=== PATIENT | female | born 1965 | race African-American/Black ===

== ENCOUNTER 2017-01-06 20:13 | Inpatient (IN) | payer OTHER, MEDICARE ==
--- NOTE | ~2017-01-06 | CR72 ---
[facility] A Service of [facility] RADIOLOGY TEXT RESULTS PATIENT: VANESSA NAVA LOCATION: [facility] [id number] : [birth year] UNIT #: [id number] AGE: [address]: Marry Warren MD SEX: F ORDER DR: [id number] [facility] [address] [place], [place] [address] [id number] E MR#: [id number] Acc #: [id number] NAME: VANESSA NAVA : 1965 SEX: F STUDY DATE/TIME: 01/06/2017 20:01 UNIT: [facility] ROOM: STUDY DESCRIPTION: CR Chest Single View Portable Attending Physician: Etienne Fried D.O. Ordering Physician: Etienne Fried D.O. Primary Care Physician: Joe Gallego M.D. MEDICAL IMAGING REPORT This report is preliminary unless electronic signature is present EXAM Frontal chest, 01/06/2017 INDICATION 51-year-old female with shortness of air, leg edema. Symptoms since December 20. TECHNIQUE Frontal chest was performed and compared to 11/25/2016. FINDINGS Right-sided PICC line has been removed. Postop changes median sternotomy remain present. Cardiac silhouette is borderline in size and stable. Vascular congestion and interstitial edema have decreased. There is a small left effusion with persistent atelectasis or infiltrate in the left lung base. No pneumothorax. IMPRESSION Improvement in vascular congestion and interstitial edema. Small left effusion and compressive atelectasis or infiltrate in the left lung base. No pneumothorax. Dictated by... Tyler Wise M.D. THIS IS AN ELECTRONICALLY VERIFIED REPORT Tyler Wise M.D. at 01/07/2017 11:41 AM TD/tanner TD: 01/07/2017 00:01 JOB #: [id number] [facility] A Service of [facility] RADIOLOGY TEXT RESULTS PATIENT: VANESSA NAVA LOCATION: [facility] 573-01 : 65 UNIT #: [id number] AGE: [address]: Marry Warren MD SEX: F ORDER DR: MEDICAL IMAGING REPORT Page 1 of 1 COPY
--- NOTE | ~2017-01-06 | US84 ---
[id number] [facility] [address] [place], [place] [address] [id number] I MR#: [id number] Acc #: [id number] NAME: VANESSA NAVA : 1965 SEX: F STUDY DATE/TIME: 01/06/2017 21:57 UNIT: [facility] ROOM: 15390 STUDY DESCRIPTION: US LE Veins Complete Jong Stdy Attending Physician: Tangela Suarez M.D. Ordering Physician: Etienne Fried D.O. Primary Care Physician: Joe Gallego M.D. MEDICAL IMAGING REPORT This report is preliminary unless electronic signature is present EXAM Bilateral lower extremity venous Doppler, 01/06/2017 at 21:57 INDICATIONS Swelling and pain in the legs. Recent spinal surgery and toe amputation. History of diabetes, hypertension and hyperlipidemia. TECHNIQUE Venous ultrasound examination of both lower extremities was performed using grayscale, spectral Doppler and color flow Doppler imaging. FINDINGS The examination is negative. There is no evidence of deep venous thrombus from the groin to the lower calf bilaterally. Visualized greater saphenous veins are also patent. IMPRESSION Negative examination. No evidence of lower extremity deep venous thrombosis. Dictated by... Ryan Wright Jr., M.D. THIS IS AN ELECTRONICALLY VERIFIED REPORT Ryan Wright Jr., M.D. at 01/07/2017 6:04 AM CHASTITY/tanner TD: 01/07/2017 01:07 JOB #: [id number] MEDICAL IMAGING REPORT Page 1 of 1 COPY
--- NOTE | ~2017-01-06 | EKG ---
PATIENT: VANESSA NAVA UNIT #: [id number] Ventricular Rate: 98 BPM Atrial Rate: 98 BPM P-R Interval: 154 ms QRS Duration: 96 ms Q-T Interval: 368 ms QTC Calculation(Bezet): 469 ms P Winterset: 48 degrees Calculated R Winterset: 5 degrees Calculated T Winterset: -162 degrees Diagnosis Line: Normal sinus rhythm Diagnosis Line: Possible Left atrial enlargement Diagnosis Line: Nonspecific T wave abnormality Diagnosis Line: Prolonged QT Diagnosis Line: Abnormal ECG Diagnosis Line: When compared with ECG of 04-NOV-2016 07:38, Diagnosis Line: T wave inversion no longer evident in Lateral Diagnosis Line: leads Diagnosis Line: Confirmed by ELI LUND MD ([id number]) on 01/06/2017 Diagnosis Line: 11:10:07 PM INTERPRETING MD: ASHELY TUCKER
--- NOTE | ~2017-01-06 | DS ---
Unit #: [id number] #: [id number] Patient: VANESSA NAVA [id number] [address] [address] [id number] I MR#: [id number] NAME: VANESSA NAVA ROOM: 573 Age: 51 Sex: F Admission Date: 01/06/2017 : 1965 Discharge Date: Attending Physician: Marry Warren M.D. Primary Care Physician: Joe Gallego M.D. DISCHARGE SUMMARY DISCHARGE DIAGNOSES 1. Xnovt-hq-hpdzusn systolic and diastolic heart failure. 2. Recent history of MSSA bacteremia, currently cultures negative. 3. Recent septic arthritis with epidural abscess. 4. History of mitral valve endocarditis. 5. Diabetes mellitus type 2 uncontrolled with peripheral neuropathy. 6. Hypertension. 7. Leg and back wound, stage 2 to 3. 8. History of cerebrovascular accident, no residual. 9. Hyperlipidemia. 10. Gastroesophageal reflux disease. 11. Severe protein malnutrition. 12. Hypomagnesemia. CONSULTANTS Dr. Burrows. PROCEDURES None. DIAGNOSTIC STUDIES LABORATORY: Blood cultures negative. Sodium 138, potassium 4.1, creatinine 0.8, AST 21, ALT 6, alkaline phosphatase 117, albumin 1.5, magnesium 1.6. Troponin 0.03. IMAGING: Ultrasound of the extremities negative for DVT. ALLERGIES None. DISCHARGE MEDICATIONS 1. Entresto 24/26 mg one-half tablet p.o. b.i.d. 2. Lyrica 200 p.o. b.i.d. 3. Coreg 3.125 p.o. b.i.d. 4. Senna one tablet p.o. daily. 5. Lasix 40 daily. 6. Lipitor 80 daily. 7. Lantus 15 units subcu at 8 a.m. 8. Aspirin 325 daily. 9. Oxycodone 30 mg p.o. b.i.d. extended release. 10. Percocet 10 mg q.4 h. p.r.n. pain. 11. Plavix 75 daily. 12. Potassium 10 mEq daily. Unit #: [id number] #: [id number] Patient: VANESSA NAVA HOSPITAL COURSE This 51-year-old was admitted with shortness of breath. Jprrv-rh-vpfjmdi diastolic and systolic heart failure. The patient started on IV Lasix, currently diuresing well. She has mild pedal edema. Patient was seen by Dr. Burrows. He has started her on Entresto, prescription given. I am going to check with vocational case manager regarding the cost. Will notify Cardiology if she cannot afford it. After that, patient will be discharged home. Also, LifeVest has been ordered by Dr. Burrows. Diabetes mellitus type 2 uncontrolled with peripheral neuropathy. Continue with insulin. Leg and back wounds, chronic. Continue with wound care, no antibiotic needed. Continue with wound clinic in one week time. Recent bacteremia with multiple complications. Blood cultures so far negative. Severe protein malnutrition. Continue with high protein diet. I will order home health and possible skin pass operator as an outpatient. Discharge home after LifeVest and Entresto ordered. Discharge with home health. FOLLOWUP 1. Follow with family physician in one week time. 2. Follow with wound clinic in one week time. 3. Follow with Dr. Burrows in two weeks time. Dictated by... Ben Alcazar/dorothy TD: 01/08/2017 17:49 JOB #: [id number] DISCHARGE SUMMARY Page 1 of 1 X Marry Warren MD X DISCHARGE SUMMARY
--- NOTE | ~2017-01-06 | CO ---
Unit #: [id number] #: [id number] Patient: VANESSA NAVA [id number] [facility] [address] [place], [place] [address] [id number] I MR#: [id number] NAME: VANESSA NAVA ROOM: 573 Age: 51 Sex: F Admission Date: 01/06/2017 : 1965 Attending Physician: Marry Warren M.D. Primary Care Physician: Joe Gallego M.D. Consultation Date: 01/07/2017 CONSULTATION REPORT PRIMARY CARE PHYSICIAN Joe Gallego M.D. REASON FOR CONSULTATION Congestive heart failure. HISTORY OF PRESENT ILLNESS Ms. Nava is a 51-year-old female who has been recently hospitalized from 10/31/2016 through 11/11/2016 at [facility] with sepsis secondary to methicillin-sensitive Staphylococcus aureus bacteremia. She had left great toe osteomyelitis and right acromioclavicular septic arthritis, status post incision and drainage with distal clavicle excision. She had probable mitral valve endocarditis with methicillin-sensitive Staphylococcus aureus. She had an epidural abscess with associated canal stenosis. She was discharged from [facility] to [facility] for a consult with Spine Surgery and surgery regarding epidural abscess. She was discharged from [facility] to rehab. She completed a GEOFFREY due to all of this on 11/08/2016, which showed an EF of 20% to 25%. Severe septal hypokinesis. Left ventricular size moderately increased. Uama-xt-gdopaliz concentric left ventricular hypertrophy. Mildly dilated left atrium. No shunt with bubble study. Uthsfdys-df-cnsdlt thickening of mitral valve leaflets. Llcx-bz-kglxxawm mitral regurgitation. Mild tricuspid regurgitation. Small pericardial effusion. Cannot rule out small vegetation attached to the mitral valve leaflet. This transesophageal echocardiogram was completed by Dr. German. She had been doing somewhat better until approximately 2 to 3 days ago when she started developing some shortness of breath while walking to the restroom. Her noticed some swelling in both of her legs for the last 3 to 4 days. She then presented to the [facility] Emergency Room at 6:47 p.m. last night on 01/06/2017 with a complaint of shortness of breath and dyspnea. She was given Lasix 20 mg IV as well as some Percocet. She was starting to feel slightly better when I evaluated her this morning. She was accompanied with her during my interview. This information is received from the patient interview as well as record review. Her prior cardiac testing history includes a 2D echocardiogram on 11/24/2015, EF of 25%. A repeat echocardiogram in 03/2016 showed an EF of 50%. During that time frame, she was wearing a LifeVest. In 10/2015, she had myocardial infarction and completed a left heart catheterization and ultimately was transferred to [facility] for coronary artery bypass grafting. This involves the LYNDON to LAD and saphenous vein graft in sequence PDA and ramus. She also has a history of coronary artery disease with stent in 2011. Unit #: [id number] #: [id number] Patient: VANESSA NAVA 1. Systolic congestive heart failure. 2. CVA in 2013. 3. Diabetes. 4. Hypertension. 5. Dyslipidemia. 6. Peripheral neuropathy. 7. Gastroesophageal reflux disease. 8. Right axillary abscess I and D. 9. Mild pulmonary hypertension. 10. Acute renal insufficiency during hospitalization in 10/2016 and in 11/2016. ALLERGIES No known drug allergies. MEDICATIONS Home medications include the following: Oxycodone 30 mg b.i.d., aspirin 325 mg daily, Prinivil 5 mg daily, Plavix 75 mg daily, Lasix 40 mg daily, potassium 10 mEq daily, Lyrica 200 mg b.i.d., Coreg 3.125 mg b.i.d., Senokot 1 tablet daily, Lipitor 80 mg daily, Percocet 10/325 q.4 hours p.r.n. pain, and Lantus insulin 1000 units subcu daily. SOCIAL HISTORY She has been a 1 pack a day smoker, but quit 1 year ago. She drinks alcoholic beverages occasionally. Denies the use of drugs. FAMILY HISTORY Mother with coronary artery bypass grafting, mitral valve replacement, diabetes in her 50s, of cancer at age 67. Father had a stroke in his 50s and in his 60s REVIEW OF SYSTEMS GENERAL: Denies any fever, chills, flu-like symptoms, or unintentional weight loss. SKIN: Denies any rashes, ulcerations, or wounds. HEAD: Denies any increasing headache. EYES: Denies any sudden change in vision. EARS: Denies any sudden change in hearing. BLEEDING: Denies epistaxis, hemoptysis, hematuria, or melena. THROAT: Denies any problems swallowing. LUNGS: Denies any wheeze or cough. Positive for shortness of breath. CHEST: Denies any pain, palpitations, tachycardia, PND, or orthopnea. GI: Denies any nausea, vomiting, diarrhea, constipation, or change in stools. GENITOURINARY: Denies any burning or urgency. EXTREMITIES: Swelling of the bilateral lower extremities, but no increased stomach swelling. No increased pain with walking. SPINE: No chronic back pain or scoliosis. NEUROLOGIC: Positive for numbness and tingling. No seizures, stroke-like symptoms, unsteadiness, dizziness, or falls, and she is noted to have some sweating at night. PHYSICAL EXAMINATION VITAL SIGNS: Blood pressure is 123/76, heart rate 90, respirations 13, temperature is 98.8, and weight 218 pounds. GENERAL: Well-developed, well-nourished, female, in no acute distress, resting in the bed. SKIN: No obvious rashes or ulcerations noted, but she does have occlusive Unit #: [id number] #: [id number] Patient: BRANDY,VANESSA dressing to bilateral lower feet. HEENT: Eyes, PERRLA. No xanthelasma. Oral, fair dentition. Moist mucous membranes. No pallor. NECK: No carotid bruits auscultated bilaterally. SPINE: Not assessed. CHEST: Clear to auscultation bilaterally. No wheezes, rales, or rhonchi. CARDIAC: S1 and S2. No murmur, rub, gallop, or lift. ABDOMEN: Soft and nontender. Positive bowel sounds. EXTREMITIES: Bilateral pedal pulses are very weak, and she does have some trace bilateral lower extremity edema. NEUROLOGIC: Alert and oriented x3. Speech is clear. No obvious neuro deficits. DIAGNOSTIC STUDIES Her current labs/tests include: IMAGING STUDIES: Chest x-ray shows improvement in vascular congestion and interstitial edema. Small left effusion and compressive atelectasis or infiltrate in the left lung base. No pneumothorax. She has bilateral lower extremity Doppler, which is negative for DVT. LABORATORY RESULTS: Sodium 135, potassium 3.4, glucose 118, BUN 14, and creatinine 0.8. Troponin 0.03, prior to that was less than 0.05 and originally on arrival was less than 0.05. Hemoglobin 9, hematocrit 28.6, platelets 221, and white blood cell count 7.2. BNP 1461. CARDIOVASCULAR STUDIES: EKG shows normal sinus rhythm with possible left atrial enlargement and nonspecific T-wave abnormality. IMPRESSION 1. Acute on chronic systolic congestive heart failure. 2. Recent methicillin-sensitive Staphylococcus aureus infection with multiple sites. 3. Recent acute renal insufficiency. 4. Coronary artery disease with history of coronary artery bypass graft in 2016. 5. Diabetes. 6. Hypertension. 7. Hyperlipidemia. 8. Gastroesophageal reflux disease. 9. History of cerebrovascular accident. 10. Ischemic cardiomyopathy with an EF of 20% to 25%. 11. Recent mitral valve endocarditis with no vegetation in 10/2016, for which she completed a course of antibiotics. 12. Pulmonary hypertension, mild. PLAN Dr. Cuba has evaluated Ms. Nava at the bedside and feels as though she would benefit from increased Lasix dosing and repeating her 2D echocardiogram. LifeVest will need to be considered again at discharge as she has had a LifeVest in the past. Further recommendations based on hospital course and results of a repeat 2D echocardiogram. Dictated by... Kolby RothmanRMiguelN. for Ben Coy/ruddy Unit #: [id number] #: [id number] Patient: VANESSA NAVA TD: 01/08/2017 16:26 JOB #: [id number] CONSULTATION REPORT Page 1 of 1 X X CONSULTATION REPORT
--- NOTE | ~2017-01-06 | HP ---
Unit #: [id number] #: [id number] Patient: VANESSA NAVA [id number] [facility] [address] [place], [place] [address] [id number] I MR#: [id number] NAME: VANESSA NAVA ROOM: 59000 Age: 51 Sex: F Admission Date: 01/06/2017 : 1965 Attending Physician: Tangela Suarez M.D. Primary Care Physician: Joe Gallego M.D. HISTORY AND PHYSICAL CHIEF COMPLAINT Edema, possible congestive heart failure. HISTORY This 51-year-old female with ischemic cardiomyopathy, ejection fraction 20% to 25%, essential hypertension, diabetes mellitus, is admitted for fluid overload. Patient states that she was recently discharged from [facility] after treatment for an epidural abscess. Has been home for the past few weeks, notes increasing bilateral pedal edema, perhaps more on the left side with dyspnea on exertion and decreased urinary output. Denies chest pain or cough with the above. She presents to our emergency department with stable vital signs. Chest x-ray shows improved congestive heart failure but BNP is elevated. Patient also has decreased albumin stores with a serum albumin of 1.8, up from 1.2 two months ago. She takes 20 mg p.o. daily of Lasix. In the ER, she was given 20 mg of IV Lasix. Patient was recently admitted to this facility in October for methicillin-sensitive Staph aureus bacteremia with probable mitral valve endocarditis. She had complications of left great toe osteomyelitis requiring partial amputation, right acromioclavicular septic arthritis requiring I and D and distal clavicle excision. Developed an L3-4 epidural abscess which was treated at [facility] along with acute kidney injury. PAST MEDICAL HISTORY 1. Ischemic cardiomyopathy. Last GEOFFREY revealed an ejection fraction of 20% to 25% with wall motion abnormalities. Severe thickening of the mitral valve leaflets, hptf-vv-kwidymjo MR, mild TR. She is status post PCI and stents and ultimately CABG followed by Dr. Burrows. 2. Recent admission to our hospital 10/2016 for methicillin-sensitive Staph aureus bacteremia resulting in right acromioclavicular septic arthritis, L3-4 epidural abscess, patient also had left great toe osteomyelitis requiring partial amputation. Underwent surgery for the right acromioclavicular septic arthritis, and later underwent surgery for L3-4 epidural abscess. Did experience acute kidney injury during that hospitalization. Was felt to have likely mitral valve endocarditis. 3. AODM with peripheral neuropathy. 4. Hypertension. 5. Previous CVA without residual symptoms. 6. Hyperlipidemia. 7. GERD. Unit #: [id number] #: [id number] Patient: VANESSA NAVA ALLERGIES No known drug allergies. HOME MEDICATIONS 1. Patient paints Betadine on her partial amputation left great toe daily, covers with sterile dressing. 2. Oxycodone 30 mg b.i.d. 3. Aspirin 325 mg daily 4. Lisinopril 5 mg daily 5. Plavix 75 mg daily 6. Lasix - Patient states she is only taking 20 mg daily 7. Potassium 10 mEq daily 8. Lyrica 200 mg b.i.d. 9. Coreg 3.125 mg b.i.d. 10. Senna tablets two tablets at bedtime 11. Lipitor 80 mg at bedtime 12. Percocet 10/325 q.4 hours as needed 13. Lantus 10 units subcu q.a.m. 14. PhosLo 667 mg two tablets t.i.d. FAMILY HISTORY CAD, diabetes. SOCIAL HISTORY The patient lives with her . She stopped smoking last year. Does not drink alcohol. REVIEW OF SYSTEMS Notable for dyspnea on exertion, increasing pedal edema, recent methicillin-sensitive Staph aureus bacteremia with septic arthritis and epidural abscess, ischemic cardiomyopathy, diabetes, neuropathy, hypertension, hyperlipidemia, above-mentioned surgeries. All other systems were reviewed and are otherwise negative. PHYSICAL EXAMINATION GENERAL: Pleasant, moderately obese 51-year-old female currently in no acute distress. VITAL SIGNS: Temperature 98.8, pulse 102, respirations 16, blood pressure 127/66, O2 saturation 96% on room air. HEENT EXAMINATION: Eyes PERRLA. Extraocular muscles are intact. Pharynx is benign. NECK: Supple without adenopathy or thyromegaly. CHEST: Reveals crackles bilaterally about one-third up. Healing clean incision lower back. CARDIAC: Normal S1, S2 without definite murmur. ABDOMEN: Bowel sounds are present. No hepatosplenomegaly, tenderness or masses. EXTREMITIES: With 2+ bilateral edema. Pedal pulses are diminished. Negative Homans sign. I did not remove the wrappings from the legs. NEUROLOGIC EXAM: Patient is awake, alert, oriented. Cranial nerves are intact. Equal strength throughout but generally weak on exam. DIAGNOSTIC STUDIES ADMISSION LABORATORY: Hematocrit is 28.4, which is improved. Normal white count. MCV is 81. Normal platelet count. SMA-12: Glucose 126, sodium 133, chloride 94, calcium 8, albumin 1.8, alk Unit #: [id number] #: [id number] Patient: VANESSA NAVA phos 123. BNP 1500, which is higher than before. CARDIAC MARKERS: Negative. IMAGING: Chest x-ray - Improving congestive heart failure. Small left pleural effusion with atelectasis versus infiltrate. CARDIOLOGY: EKG - Normal sinus rhythm, rate 98, some nonspecific ST wave abnormalities similar to before. ASSESSMENT 1. Ischemic cardiomyopathy with fluid overload. Patient has an ejection fraction of 20% to 25%. She also has decreased albumin stores, which may be contributing to some of her edema. 2. Recent admission for methicillin-sensitive Staph aureus bacteremia and septic arthritis along with epidural abscess. Possible mitral valve endocarditis for which the patient was treated. 3. Adult-onset diabetes mellitus with peripheral neuropathy. 4. Essential hypertension. PLANS 1. IV Lasix, obtain I's and O's and daily weights. 2. Consult patient's stock driver in the morning. 3. DVT prophylaxis. Dictated by Tangela Suarez M.D. AML/psc TD: 01/07/2017 02:13 JOB #: [id number] CC: Joe Gallego M.D. HISTORY AND PHYSICAL Page 1 of 1 X Tangela Suarez MD X HISTORY AND PHYSICAL
[2017-01-06 20:05] LABS: POC - CKMB 4.8 ng/mL (0.0-7.9); POC - TROPONIN <0.05 ng/mL (<=0.05)
[2017-01-06 20:07] LABS: BASOPHIL% 0.5 % (0-2.5); EOSINOPHIL# 0.2 X10e3 (0-0.7); EOSINOPHIL% 1.9 % (0.0-7.0); HEMATOCRIT 28.4 % (35.0-45.0); HEMOGLOBIN 8.8 gm/dL (12.0-16.0); LYMPHOCYTE# 1.8 X10e3 (1.0-3.5); LYMPHOCYTE% 20.6 % (17.0-45.0); MEAN CELL VOLUME 80.9 FL (83-96); MEAN CORPUSCULAR HGB CONC 30.9 g/dL (30-36); MEAN PLATELET VOLUME 8.9 FL (6.5-11.5); MONOCYTE# 0.9 X10e3 (0-1.0); MONOCYTE% 10.3 % (3.0-12.0); NEUTROPHIL% 66.7 % (40-75); PLATELET COUNT 238 X10e3 (140-420); RED BLOOD COUNT 3.51 X10e (3.90-5.30); RED CELL DISTRIBUTION WIDTH 16.4 % (11.0-15.5)
[2017-01-06 20:10] LABS: DIFF IND NO
[~2017-01-06 20:13] MED LIST: AMARYL PO; AMARYL2 MG PO; AMBIEN10 MG PO; AMLODIPINE BESYL5 MG PO; ASPIR-TRIN325 MG PO; ASPIRIN81 M1 PO; ASPIRIN81 MG PO; BAYER ASPIRIN325 M1 PO; BENICAR20 MG PO; CEFUROXIME250 MG PO; CLOPIDOGREL75 MG PO; COZAAR100 MG PO; COZAAR25 MG PO; CRESTOR PO; ECOTRIN81 M1 PO; FERROUS FUMARAT1 TAB PO; FLEXERIL10 MG PO; GLIPIZIDE10 MG PO; GLUCOPHAGE XR500 MG PO; GLUCOPHAGE500 MG PO; HEMOCYTE324 MG PO; HYDROCHLOROTHIA25 MG PO; JARDIANCE25 MG PO; LANTUS100 U/ML SUBQ; LEVEMIR100 U/ML SQ; LIPITOR20 MG PO; LIPITOR40 MG PO; LOSARTAN POTAS100 MG PO; LYRICA200 MG PO; MEDROL PO; METFORMIN HCL1000 M1 PO; METFORMIN HCL500 M3 PO; METFORMIN PO; MICRONASE5 M1 PO; NAPROSYN500 MG PO; NEURONTIN PO; NORVASC10 MG PO; NUCYNTA75 MG PO; PHENERGAN25 MG PO; PLAVIX PO; PLAVIX300 MG PO; SERTRALINE HCL50 MG PO; TOUJEO SOL300 UNIT/1 SUBQ; VICODIN 5/500 T1 TAB PO; ZOCOR; ZOCOR PO; ZOFRAN ODT4 MG PO
[2017-01-06 20:27] LABS: ALBUMIN SERUM 1.8 g/dL (3.5-5.0); BILIRUBIN, DIRECT 0.1 mg/dL (0.0-0.2); BILIRUBIN,INDIRECT 0.5 mg/dL (0.0-0.9); BILIRUBIN,TOTAL 0.6 mg/dL (0.2-2.0); GLOM FILT RATE Estimated 75.6 mL/min (>60); POTASSIUM 3.5 mmol/L (3.5-5.1); PROTEIN TOTAL SERUM 7.3 g/dL (6.0-8.3)
[2017-01-07] MEDS ORDERED: OXYCODONE HCL30 MG PO (01:51)
[2017-01-07] MEDS ORDERED: PRINIVIL5 MG PO (01:52)
[2017-01-07] MEDS ORDERED: TASPRIN325 MG PO (01:52)
[2017-01-07] MEDS ORDERED: CLOPIDOGREL75 MG PO (01:53)
[2017-01-07] MEDS ORDERED: LASIX20 MG PO (01:53)
[2017-01-07] MEDS ORDERED: LYRICA200 MG PO (01:54)
[2017-01-07] MEDS ORDERED: POTASSIUM CHLO10 ME1 PO (01:54)
[2017-01-07] MEDS ORDERED: SENEXON-S TABL1 EACH PO (01:55)
[2017-01-07] MEDS ORDERED: COREG3.125 MG PO (01:55)
[2017-01-07] MEDS ORDERED: LIPITOR PO (01:56)
[2017-01-07] MEDS ORDERED: LANTUS100 U/ML SUBQ (01:58)
[2017-01-07] MEDS ORDERED: PERCOCET10 PO (01:58)
[2017-01-07 02:50] LABS: POC - CKMB 4.1 ng/mL (0.0-7.9); POC - TROPONIN <0.05 ng/mL (<=0.05)
[2017-01-07 04:38] LABS: BASOPHIL# 0.1 X10e3 (0-0.3); BASOPHIL% 1.1 % (0-2.5); DIFF IND NO; EOSINOPHIL# 0.2 X10e3 (0-0.7); EOSINOPHIL% 3.3 % (0.0-7.0); HEMATOCRIT 28.6 % (35.0-45.0); LYMPHOCYTE# 2.2 X10e3 (1.0-3.5); LYMPHOCYTE% 30.6 % (17.0-45.0); MEAN CELL VOLUME 80.5 FL (83-96); MEAN CORPUSCULAR HEMOGLOBIN 25.2 PG (28-34); MEAN CORPUSCULAR HGB CONC 31.3 g/dL (30-36); MEAN PLATELET VOLUME 8.6 FL (6.5-11.5); MONOCYTE% 13.3 % (3.0-12.0); NEUTROPHIL# 3.7 X10e3 (1.5-7.1); NEUTROPHIL% 51.7 % (40-75); PLATELET COUNT 221 X10e3 (140-420); RED BLOOD COUNT 3.55 X10e (3.90-5.30); RED CELL DISTRIBUTION WIDTH 16.2 % (11.0-15.5); WHITE BLOOD COUNT 7.2 X10e3 (4.0-10.5)
[2017-01-07 04:57] LABS: BUN/CREATININE RATIO 17.5; CREATININE SERUM 0.8 mg/dL (0.6-1.4); POTASSIUM 3.4 mmol/L (3.5-5.1)
[2017-01-07 05:15] LABS: %MB 0.5 % (0.0-4.0); MB 2.5 ng/ml
[2017-01-08 04:29] LABS: HEMATOCRIT 27.9 % (35.0-45.0); HEMOGLOBIN 8.6 gm/dL (12.0-16.0); MEAN CELL VOLUME 80.8 FL (83-96); MEAN CORPUSCULAR HEMOGLOBIN 24.9 PG (28-34); MEAN CORPUSCULAR HGB CONC 30.8 g/dL (30-36); MEAN PLATELET VOLUME 8.7 FL (6.5-11.5); RED BLOOD COUNT 3.45 X10e (3.90-5.30); RED CELL DISTRIBUTION WIDTH 16.5 % (11.0-15.5); WHITE BLOOD COUNT 6.5 X10e3 (4.0-10.5)
[2017-01-08 04:45] LABS: INR 1.1; PARTIAL THROMBOPLASTIN TIME 31.3 SECONDS (23.5-31.3)
[2017-01-08 05:11] LABS: ALBUMIN SERUM 1.5 g/dL (3.5-5.0); BILIRUBIN,TOTAL 0.4 mg/dL (0.2-2.0); CREATININE SERUM 0.8 mg/dL (0.6-1.4); MAGNESIUM 1.6 mg/dL (1.6-3.0); POTASSIUM 4.1 mmol/L (3.5-5.1); PROTEIN TOTAL SERUM 6.1 g/dL (6.0-8.3)
[2017-01-08 05:19] LABS: %MB 0.4 % (0.0-4.0); MB 1.7 ng/ml
[2017-01-08] MEDS ORDERED: ATRAC-TAIN142 GM TOP (15:17)
[2017-01-08] MEDS ORDERED: ENTRESTO 24 MG1 EACH PO (15:17)
== END 2017-01-09 09:21 | disposition home health service (06) | DRG 291 ==
LOC: CED 20:13 → CEDOF 23:50 → C5C 01-07 11:42
PROVIDERS: Emergency Medicine; Internal Medicine
PROC: B24BYZZ Ultrasonography of Heart with Aorta using Other Contrast (ICD-10-PCS; principal; 2017-01-08)
DX: I11.0 Hypertensive heart disease with heart failure (principal); L89.103 Pressure ulcer of unspecified part of back, stage 3; E43 Unspecified severe protein-calorie malnutrition; E11.42 Type 2 diabetes mellitus with diabetic polyneuropathy; I27.2 Other secondary pulmonary hypertension; L89.893 Pressure ulcer of other site, stage 3; E83.42 Hypomagnesemia; Z95.1 Presence of aortocoronary bypass graft; I50.43 Acute on chronic combined systolic (congestive) and diastolic (congestive) heart failure; I25.10 Atherosclerotic heart disease of native coronary artery without angina pectoris; I25.5 Ischemic cardiomyopathy; K21.9 Gastro-esophageal reflux disease without esophagitis; Z72.0 Tobacco use; Z89.412 Acquired absence of left great toe; E78.5 Hyperlipidemia, unspecified; Z86.73 Personal history of transient ischemic attack (TIA), and cerebral infarction without residual deficits; Z79.82 Long term (current) use of aspirin; Z79.4 Long term (current) use of insulin; I25.2 Old myocardial infarction; E87.6 Hypokalemia; D50.9 Iron deficiency anemia, unspecified; E11.65 Type 2 diabetes mellitus with hyperglycemia; Z68.33 Body mass index [BMI] 33.0-33.9, adult
CPT/HCPCS: 36415; 71010; 80048; 80053; 80076; 82550; 82553; 82947; 83735; 83880; 84484; 85025; 85027; 85610; 85730; 87040; 87070; 87205; 93005; 93306; 93970; 94760; 99285; J1650; J1940; J3475

== ENCOUNTER 2017-01-17 19:41 | Inpatient (IN) | payer OTHER, MEDICARE ==
--- NOTE | ~2017-01-17 | CO ---
Unit #: [id number] #: [id number] Patient: VANESSA NAVA [id number] [address] [place], [place] [address] [id number] I MR#: [id number] NAME: VANESSA NAVA ROOM: [facility] Age: 51 Sex: F Admission Date: 01/17/2017 : 1965 Attending Physician: Marry Warren M.D. Primary Care Physician: Joe Gallego M.D. CONSULTATION REPORT REASON FOR CONSULTATION Shortness of breath, pleural effusion and critical care management. HISTORY OF PRESENT ILLNESS This patient basically is a 51-year-old female with past medical history of congestive heart failure, hypertension, CVA, gastroesophageal reflux disease, history of septic arthritis, epidural abscess, (1) , who persents with the complaint of shortness of breath and has been admitted to the intensive care unit with impression of systolic heart failure exacerbation, left-sided pleural effusion and leukocytosis. I am seeing the patient at bedside, currently on nasal cannula. The patient denies any headache, blurred vision, chest pain. PAST MEDICAL HISTORY As described. SOCIAL HISTORY Ex-smoker. No alcohol. No drug abuse. ALLERGIES No known drug allergies. MEDICATION As per MAR, has been reviewed. PHYSICAL EXAMINATION VITAL SIGNS: Temperature 98. Pulse 87. Respiration 12. Blood pressure 150/70. NEUROLOGIC: Awake, alert, oriented. No neuro deficit. HEENT: PERRLA. NECK: Supple. No JVD. CHEST: Bilateral air entry. Bilateral mild rhonchi. GASTROINTESTINAL: Nontender. Soft. Bowel sounds positive. EXTREMITIES: No edema. DIAGNOSTIC STUDIES Labs and imaging have been reviewed. ASSESSMENT AND PLAN Acute exacerbation of congestive heart failure, systolic, left-sided pleural effusion, leukocytosis, sepsis, diabetes mellitus, CVA, gastroesophageal reflux disease, history of septic arthritis, critically ill patient, history of endocarditis. The plan is to continue the patient on broad-spectrum IV antibiotics, bronchodilator, GI and DVT prophylaxis Unit #: [id number] #: [id number] Patient: VANESSA NAVA and diuresis as per Cardiology. Continue inotropic support and monitor hemoglobin and hematocrit. We will order a left-sided thoracentesis to be done tomorrow by IR and we will follow the patient very closely. We will order noncontrast CT of the chest. Will need outpatient sleep study. Total critical care time is 65 minutes in direct critical care of this patient. Thank you very much for this consultation. Dictated by.Miguel. Ben Ramos TD: 01/18/2017 14:40 JOB #: [id number] CONSULTATION REPORT Page 1 of 1 X Liz Greenwood MD X CONSULTATION REPORT
--- NOTE | ~2017-01-17 | HP ---
Unit #: [id number] #: [id number] Patient: VANESSA NAVA [id number] [facility]. [place], [place] [address] [id number] I MR#: [id number] NAME: VANESSA NAVA ROOM: 69263 Age: 51 Sex: F Admission Date: 01/17/2017 : 1965 Attending Physician: Akiko Gibbs M.D. Primary Care Physician: Joe Gallego M.D. HISTORY AND PHYSICAL CHIEF COMPLAINT Shortness of breath. DISCUSSION This is a 51-year-old very female with a history of CHF, ejection fraction 20% to 25%, systolic and diastolic CHF, history of hypertension, CVA, with (1) dyslipidemia, GERD, severe protein malnutrition, history of septic arthritis with an epidural abscess, MSSA bacteremia in the past, mitral wall endocarditis She was recently in hospital here for CHF exacerbation, was discharged on 01/08/17. She presented back to ER today which chief complaint of having shortness of breath. She was found to be on CHF and she was found to be in respiratory distress, placed on BiPAP. Currently she is on BiPAP. As per who is available at bedside, she has been having shortness of breath and cough for a couple of days, got worse today. She was unable to breathe and brought to ER, placed on BiPAP. She denies chest pain. She denies fever, chills, nausea, vomiting, cough or other complaint. PAST MEDICAL HISTORY 1. History of Ischemic cardiomyopathy. Last GEOFFREY revealed ejection fraction 20% to 25% with wall motion abnormalities. Severe thickening of the mitral valve leaflets, ueik-pu-ugqjckde MR, mild TR. 2. She is status post PCI and stents and ultimately CABG, followed by Dr. Burorws. 3. History of admission in October 2016 for MSSA bacteremia resulting in right acromioclavicular septic arthritis, L3-4 epidural abscess. 4. Patient also has osteomyelitis of left great toe status post requiring amputation. 5. Status post surgery for right acromioclavicular septic arthritis. 6. Status post I/D for L3-4 epidural abscess. 7. History of diabetes with peripheral neuropathy. 8. Hypertension. 9. History of CVA without residual symptoms. 10. History of hyperlipidemia. 11. GERD. 12. History of severe protein malnutrition. 13. History of mitral valve endocarditis. ALLERGIES No known drug allergies. FAMILY HISTORY Positive for coronary artery disease, diabetes. Unit #: [id number] #: [id number] Patient: VANESSA NAVA SOCIAL HISTORY She lives with her . She stopped smoking last year, denies alcohol or other illicit drug use. HOME MEDICATION Medication from home is followin. K-Dur 10 mEq p.o. daily. 2. Lyrica 200 mg b.i.d. 3. Coreg 3.125 mg p.o. b.i.d. 4. Senna two tablets q.h.s. 5. Atorvastatin 80 mg q.h.s. 6. Oxycodone 30 mg b.i.d. 7. Aspirin 325 daily. 8. Lisinopril 5 mg daily. 9. Plavix 75 mg daily. 10. Lasix 40 mg daily. 11. Percocet 10/325 one tablet q.4 h. p.r.n. 12. Lantus 10 units q.p.m. REVIEW OF SYSTEMS All review of systems negative except as per history of presenting illness. PHYSICAL EXAMINATION GENERAL: On examination middle-aged female lying in the bed. She is currently on BiPAP. VITAL SIGNS: Current vitals are following: Temperature 99.3, heart rate 125, respiratory rate 18, blood pressure 155/80, oxygen 95% on room air. HEENT: on HEENT examination extraocular muscles intact. Pupils equally react to light and accommodation. Pharynx is benign. NECK: Supple. No JVD. No thyromegaly. No lymphadenopathy. LUNGS: Decreased air entry with bilateral basal crackles. HEART: S1, S2, regular rhythm, tachycardia. ABDOMEN: Soft, nontender. EXTREMITIES: 3+ edema. NEUROLOGIC: No focal neurological deficit. DIAGNOSTIC STUDIES IMAGING: A chest x-ray shows increasing left pleural effusion, moderate to moderately large. Persistent interstitial edema pattern LABORATORY: Troponin less than 0.05. BNP 3252. Sodium 137, potassium 3.7, chloride 101, glucose 194, BUN 10, creatinine 0.8, glucose 154. CBC: White count 18, hemoglobin is 9, hematocrit 31, platelets 467. INR is 1.1. Blood culture negative. ASSESSMENT AND PLAN 1. Htucg-bg-qgsnyyh systolic and diastolic congestive heart failure with ejection fraction 205 to 25%: Currently she is in respiratory distress, placed on BiPAP, admitted in the ICU, started on IV diuretics. Continue BiPAP at this time. 2. Left pleural effusion. 3. Leukocytosis. Will follow, repeat blood cultures. Will get UA and monitor. Repeat CBC in the morning. 4. History of diabetes with peripheral neuropathy: Continue Lantus. Place on sliding scale. 5. History of hypertension. Unit #: [id number] #: [id number] Patient: VANESSA NAVA 6. History of cerebrovascular accident with no residual effect. 7. Dyslipidemia. 8. Gastroesophageal reflux disease. 9. History of severe protein malnutrition. 10. History of (2) septic arthritis with epidural abscess. 11. History of methicillin-sensitive Staphylococcus aureus bacteremia in the past: Repeat blood culture. 12. History of mitral valve endocarditis. 13. DVT prophylaxis: Will place the patient on Lovenox. Dictated by Ben Lambert/martina TD: 01/17/2017 23:07 JOB #: [id number] HISTORY AND PHYSICAL Page 1 of 1 X X HISTORY AND PHYSICAL
--- NOTE | ~2017-01-17 | EKG ---
PATIENT: VANESSA NAVA UNIT #: [id number] Ventricular Rate: 139 BPM Atrial Rate: 139 BPM P-R Interval: 138 ms QRS Duration: 84 ms Q-T Interval: 262 ms QTC Calculation(Bezet): 398 ms P [place]: 71 degrees Calculated R [place]: 84 degrees Calculated T [place]: -51 degrees Diagnosis Line: Sinus tachycardia Diagnosis Line: T wave abnormality, consider lateral ischemia Diagnosis Line: Abnormal ECG Diagnosis Line: When compared with ECG of 06-JAN-2017 19:08, Diagnosis Line: Questionable change in QRS axis Diagnosis Line: Nonspecific T wave abnormality now evident in Diagnosis Line: Anterior leads Diagnosis Line: Nonspecific T wave abnormality, improved in Diagnosis Line: Lateral leads Diagnosis Line: Confirmed by GUILLERMO CASTRO MD ([id number]) on 01/23/2017 Diagnosis Line: 11:44:16 AM INTERPRETING MD: GLORIA TUCKER
--- NOTE | ~2017-01-17 | CT57 ---
[facility] A Service of [facility] RADIOLOGY TEXT RESULTS PATIENT: VANESSA NAVA LOCATION: [address] : [birth year] UNIT #: [id number] AGE: [address]: Marry Warren MD SEX: F ORDER DR: [id number] [facility] [address] [place], [place] [address] [id number] I MR#: [id number] Acc #: [id number] NAME: VANESSA NAVA : 1965 SEX: F STUDY DATE/TIME: 01/18/2017 18:12 UNIT: [facility] ROOM: [facility] STUDY DESCRIPTION: CT Chest Wo Cont Attending Physician: Marry Warren M.D. Ordering Physician: Liz Greenwood M.D. Primary Care Physician: Joe Gallego M.D. MEDICAL IMAGING REPORT This report is preliminary unless electronic signature is present EXAM CT chest without contrast. HISTORY CHF. Less left-sided effusion, shortness of air starting yesterday. TECHNIQUE NOTE: This CT exam was performed with one or more of the following radiation dose reduction techniques: automatic exposure control, adjustment of mA and/or kV according to patient size, and iterative reconstruction. FINDINGS Axial images performed through the chest without contrast. Multiplanar reconstructed images reviewed at a workstation. Examination demonstrates bilateral pleural effusions layering to a depth of just over 2.5 cm bilaterally. Compressive atelectasis and/or infiltrate noted in both lung bases. Mid and upper lung zones remain clear. Trachea and bronchi unremarkable. Moderate cardiomegaly. Coronary artery calcifications noted. No pericardial effusion. Upper abdomen unremarkable. The patient is post median sternotomy. Thoracic inlet. Extrathoracic soft tissues unremarkable. IMPRESSION 1. Bilateral pleural effusions with bibasilar parenchymal opacities most likely representing compressive atelectasis. No definite airspace disease or consolidation. 2. Cardiomegaly with extensive coronary artery calcifications. Dictated by..Miguel Lincoln M.D. [facility] A Service of [facility] RADIOLOGY TEXT RESULTS PATIENT: VANESSA NAVA LOCATION: [facility]3-14 : [birth year] UNIT #: [id number] AGE: [address]: Marry Warren MD SEX: F ORDER DR: THIS IS AN ELECTRONICALLY VERIFIED REPORT Bel Lincoln M.D. at 01/19/2017 2:05 PM Kurt TD: 01/18/2017 21:32 JOB #: [id number] MEDICAL IMAGING REPORT Page 1 of 1 COPY
--- NOTE | ~2017-01-17 | CR72 ---
[facility] A Service of [facility] RADIOLOGY TEXT RESULTS PATIENT: VANESSA NAVA LOCATION: [facility] : [birth year] UNIT #: [id number] AGE: [address]: Marry Warren MD SEX: F ORDER DR: [id number] [facility] [address] [place], [place] [address] [id number] E MR#: [id number] Acc #: [id number] NAME: VANESSA NAVA : 1965 SEX: F STUDY DATE/TIME: 01/17/2017 20:22 UNIT: [facility] ROOM: STUDY DESCRIPTION: CR Chest Single View Portable Attending Physician: Ryan Carrillo M.D. Ordering Physician: Ryan Carrillo M.D. Primary Care Physician: Joe Gallego M.D. MEDICAL IMAGING REPORT This report is preliminary unless electronic signature is present EXAM Portable chest INDICATIONS Chest pain and shortness of air tonight. PROCEDURE Frontal view chest COMPARISON 01/06/2017 FINDINGS Stable cardiomegaly. Moderately large left effusion is increased. Interstitial prominence is unchanged. No pneumothorax. IMPRESSION 1. Increasing left pleural effusion now moderate to moderately large. 2. Persistent interstitial edema pattern. Dictated by... Uli Doyle M.D. THIS IS AN ELECTRONICALLY VERIFIED REPORT Uli Doyle M.D. at 01/20/2017 9:46 AM EEChrissy/solo TD: 01/17/2017 21:57 JOB #: [id number] MEDICAL IMAGING REPORT [facility] A Service of [facility] RADIOLOGY TEXT RESULTS PATIENT: VANESSA NAVA LOCATION: [facility] : [birth year] UNIT #: [id number] AGE: [address]: Marry Warren MD SEX: F ORDER DR: Page 1 of 1 COPY
--- NOTE | ~2017-01-17 | CO ---
Unit #: [id number] #: [id number] Patient: VANESSA NAVA [id number] [facility]. [place], [place] [address] [id number] Zaida MR#: [id number] NAME: VANESSA NAVA ROOM: [facility] Age: 51 Sex: F Admission Date: 01/17/2017 : 1965 Attending Physician: Marry Warren M.D. Primary Care Physician: Joe Gallego M.D. Consultation Date: 01/23/2017 CONSULTATION REPORT HISTORY OF PRESENT ILLNESS Ms. Nava is a 51-year-old, black female, diabetic, smoker, and no palpable pulses who has a right heel eschar that is not healing, which is fairly large. I did mechanical debridement and cleaned off the edges as best as I can. This patient will need further vascular evaluation, obviously. She also has a left great toe wound from partial amputation per Dr. Estrada in October that has some granulation tissue, but also some slough on it. It is nonhealing, also. She has also a left heel, which has some necrotic dry fissuring and ulceration on the end of it. PLAN This patient needs vascular evaluation foremost. She may even need angiography. She will need orthopedic followup. This patient may have osteomyelitis in at least two of these wounds. If so, she may need radical intervention with extensive debridement if her vascular status warrants it. She may also need partial amputation of her heel. We will use enzymatic debridement. Autolytic will not work on this patient with diabetic wounds and eschar. We will continue to follow this patient very closely. See notes and orders. Dictated by... Carlos Meza M.D. WILL/philly TD: 01/23/2017 11:22 JOB #: [id number] CONSULTATION REPORT Page 1 of 1 X Carlos Meza MD CONSULTATION REPORT
--- NOTE | ~2017-01-17 | US136 ---
[facility] A Service of [facility] RADIOLOGY TEXT RESULTS PATIENT: VANESSA NAVA LOCATION: [facility] - : 65 UNIT #: [id number] AGE: [address]: Marry Warren MD SEX: F ORDER DR: [id number] [facility] [address] [place], [place] [address] [id number] I MR#: [id number] Acc #: [id number] NAME: VANESSA NAVA : 1965 SEX: F STUDY DATE/TIME: 01/23/2017 7:14 UNIT: A [facility] ROOM: [facility] STUDY DESCRIPTION: US U/L Ext Art Study Ltd Bilat Attending Physician: Marry Warren M.D. Ordering Physician: Carlos Meza M.D. Primary Care Physician: Joe Gallego M.D. MEDICAL IMAGING REPORT This report is preliminary unless electronic signature is present EXAM Ankle-brachial indices. HISTORY Diabetes, hypertension, hyperlipidemia. Heart disease, bilateral claudication, bilateral burning sensation symptoms 1 year. Numbness, tingling, edema. FINDINGS Ankle-brachial indices performed bilaterally. All pressure measurements are in millimeters of mercury. Right brachial pressure 135, left brachial pressure 122. Distal right lower extremity pressures as follows: Dorsalis pedis at ankle 64, posterior tibial at ankle 65, great toe 23. Ankle-brachial index 0.48. Pulse volume recordings at the right ankle biphasic and dampened. Similar appearance of the right great toe pulse volume recordings. On the left distal pressures as follows: Posterior tibial at ankle 25, dorsalis pedis at ankle 68, ankle-brachial index 0.50. The left great toe has been previously amputated. Multiphasic but dampened low amplitude waveform at the left ankle. IMPRESSION 1. Abnormal examination. 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 The patient is felt to be a significantly increased risk for ischemic sequelae in the bilateral lower extremities. Level of greatest involvement cannot be determined on the basis of ankle-brachial indices alone. Vascular surgery consultation is recommended. If further anatomic assessment of the bilateral lower extremity arteries would assist in management [facility] A Service of [facility] RADIOLOGY TEXT RESULTS PATIENT: VANESSA NAVA LOCATION: [facility] 305-01 : [birth year] UNIT #: [id number] AGE: [address]: Marry Warren MD SEX: F ORDER DR: at this time, consider CT angiography if the patient is a candidate. 2. Markedly diminished right toe brachial index of 0.17 likely reflecting both upstream disease in the right lower extremity and small vessel disease in the right foot. 3. There is a pressure gradient between the upper extremities left lower than right raising the possibility of some degree of luminal narrowing in the proximal left upper extremity arterial tree. Correlate clinically. This could also be assessed with CT angiography if clinically warranted. Dictated by... Vivek Vela M.D. THIS IS AN ELECTRONICALLY VERIFIED REPORT Vivek Vela M.D. at 01/28/2017 10:29 AM NIXON/maria isabel TD: 01/23/2017 19:17 JOB #: [id number] MEDICAL IMAGING REPORT Page 1 of 1 COPY
--- NOTE | ~2017-01-17 | XA203 ---
[facility] A Service of [facility] RADIOLOGY TEXT RESULTS PATIENT: VANESSA NAVA LOCATION: [facility] : 65 UNIT #: [id number] AGE: [address]: Marry Warren MD SEX: F ORDER DR: [id number] [place], [place] [address] [id number] I MR#: [id number] Acc #: [id number] NAME: VANESSA NAVA : 1965 SEX: F STUDY DATE/TIME: 01/21/2017 7:32 UNIT: [facility] PCU ROOM: [facility] STUDY DESCRIPTION: XA Thoracentesis Attending Physician: Marry Warren M.D. Ordering Physician: Liz Greenwood M.D. Primary Care Physician: Joe Gallego M.D. MEDICAL IMAGING REPORT This report is preliminary unless electronic signature is present EXAM Ultrasound-guided thoracentesis HISTORY Left pleural effusion TECHNIQUE Procedure was explained to the patient including risks, benefits and complications. Informed consent was obtained and a formal time-out procedure was utilized. Using sterile technique and following local anesthesia with 1% Xylocaine a sheath needle was placed into the fluid under ultrasound guidance. Permanent ultrasound images were recorded. A total of 500 mL of fluid was aspirated. Some of the fluid was sent for laboratory analysis as requested by the ordering service. The patient tolerated the procedure well. IMPRESSION Technically successful ultrasound guided left thoracentesis with 500 mL of fluid obtained. Dictated by... Ryan Leo M.D. THIS IS AN ELECTRONICALLY VERIFIED REPORT Ryan Leo M.D. at 01/21/2017 5:02 PM LYNNE/constance TD: 01/21/2017 16:28 JOB #: [id number] MEDICAL IMAGING REPORT [facility] A Service of [facility] RADIOLOGY TEXT RESULTS PATIENT: VANESSA NAVA LOCATION: [facility] : 65 UNIT #: [id number] AGE: [address]: Marry Warren MD SEX: F ORDER DR: Page 1 of 1 COPY
--- NOTE | ~2017-01-17 | CR72 ---
[facility] A Service of [facility] & [facility] RADIOLOGY TEXT RESULTS PATIENT: VANESSA NAVA LOCATION: [facility] 305-01 : [birth year] UNIT #: [id number] AGE: [address]: Marry Warren MD SEX: F ORDER DR: [id number] [facility] [address] [place], [place] [address] [id number] I MR#: [id number] Acc #: [id number] NAME: VANESSA NAVA : 1965 SEX: F STUDY DATE/TIME: 01/19/2017 6:49 UNIT: [facility] ROOM: [facility] STUDY DESCRIPTION: CR Chest Single View Portable Attending Physician: Marry Warren M.D. Ordering Physician: Liz Greenwood M.D. Primary Care Physician: Joe Gallego M.D. MEDICAL IMAGING REPORT This report is preliminary unless electronic signature is present EXAM Portable chest INDICATIONS Respiratory failure. PROCEDURE Frontal view of the chest. COMPARISON 01/18/2017. Heart size unchanged. Persistent left effusion. No visible pneumothorax. IMPRESSION Stable. Dictated by... Uli Doyle M.D. THIS IS AN ELECTRONICALLY VERIFIED REPORT Uli Doyle M.D. at 01/20/2017 9:42 AM Julio C TD: 01/19/2017 08:26 JOB #: [id number] MEDICAL IMAGING REPORT Page 1 of 1 COPY
--- NOTE | ~2017-01-17 | DS ---
Unit #: [id number] #: [id number] Patient: VANESSA NAVA [id number] [address] [id number] I MR#: [id number] NAME: VANESSA NAVA ROOM: 305 Age: 51 Sex: F Admission Date: 01/17/2017 : 1965 Discharge Date: Attending Physician: Marry Warren M.D. Primary Care Physician: Joe Gallego M.D. DISCHARGE SUMMARY DISCHARGE DIAGNOSES 1. Sepsis. 2. Pneumonia. 3. Acute hypercapnic, hypoxic respiratory failure. 4. Anemia, iron deficiency. No active bleeding. 5. Acute on chronic systolic heart failure. 6. Hypertension, uncontrolled. 7. Severe protein malnutrition. 8. Obesity. 9. Recent history of methicillin-sensitive Staphylococcus aureus bacteremia and foot osteomyelitis. 10. Diabetes mellitus type 2 uncontrolled with peripheral neuropathy. 11. History of cerebrovascular accident. 12. Chronic foot wound stage four present on admission. 13. History of coronary artery disease status post percutaneous transluminal coronary angioplasty, stents and coronary artery bypass graft. 14. History of osteomyelitis left great toe status post amputation. 15. History of L3-4 epidural abscess. 16. History of right acromioclavicular septic arthritis. 17. Hyperlipidemia. 18. Gastroesophageal reflux disease. 19. History of mitral valve endocarditis. CONSULTATIONS 1. Dr. Greenwood. 2. Dr. Parish. 3. Dr. Larios. 4. Dr. Meza. PROCEDURES 1. The patient had EGD which shows mild prepyloric antral gastritis and distal esophageal mucosal ring, nonobstructing, did not require any dilatation. 2. Thoracentesis. The patient had left pleural effusion status post removal of 500 mL fluid from pleural space. DIAGNOSTIC STUDIES LABORATORY: Glucose 187, magnesium 1.9, sodium 139, potassium 3.4, creatinine 1.0. WBC 7.2, hemoglobin 7.2, platelets 230. Vitamin B12 level 1,156. IMAGING: Chest x-ray shows interstitial infiltrate. Unit #: [id number] #: [id number] Patient: VANESSA NAVA ALLERGIES None. DISCHARGE MEDICATIONS 1. DuoNeb 3 mL inhalation q.4. 2. Lyrica 50 mg p.o. b.i.d. 3. Nystatin applied topically vaginal area p.r.n. 4. Coreg 3.125 mg p.o. b.i.d. 5. MiraLax 17 g p.o. daily. 6. Bumex 1 mg p.o. b.i.d. 7. Lisinopril 5 mg daily. 8. NovoLog medium dose sliding scale. 9. Santyl applied topically b.i.d. 10. Hibiclens. Apply topically daily. 11. Aspirin 81 mg daily. 12. Percocet 5 mg three times daily p.r.n. pain. 13. Dakin solution. Apply topically b.i.d. 14. Plavix 75 mg daily. 15. Spironolactone 12.5 mg p.o. daily. 16. Potassium 20 mEq p.o. b.i.d. 17. Augmentin 875mg p.o. b.i.d. for four more days. HOSPITALIZATION COURSE A 51 year old because of shortness of breath. Acute hypercapnic, hypoxic respiratory failure from pneumonia and heart failure: Currently, she is off oxygen. The patient was requiring five liters initially. Acute on chronic systolic heart failure: Ejection fraction 20 to 25%. The patient received IV diuretics. Currently, she is on Bumex, compensated. Anemia: No active bleeding. Iron deficiency. The patient had EGD which did not show any active bleeding. Bilateral foot wounds: The patient has a history of osteomyelitis. The patient was seen by [facility], Dr. Estrada. They did not think the patient needs any kind of surgical intervention. The patient received IV Zosyn. The patient will be discharged on Augmentin. Pneumonia: The patient was seen by Pulmonary. Cultures negative. The patient received Zosyn. Continue with Augmentin for four more days. Severe protein malnutrition: Continue with high protein diet at rehab. Hypertension, uncontrolled: Added medications, currently stable. History of MSSA bacteremia: Currently, blood cultures negative. Diabetes mellitus type 2, uncontrolled with peripheral neuropathy: Continue with insulin sliding scale. The patient received IV dobutamine for CHF during the hospitalization course. Pleural effusion status post thoracentesis: No infection. Most likely from CHF. Unit #: [id number] #: [id number] Patient: VANESSA NAVA The patient will be discharged to rehab. Follow with Dr. Mercado, Vascular, in two week's time for foot wounds. Follow with Dr. Meza, [facility], in one week's time for foot wounds. Discharge time taken is 34 minutes. Dictated by... Ben Alcazar TD: 01/24/2017 14:07 JOB #: [id number] DISCHARGE SUMMARY Page 1 of 1 X Marry Warren MD X DISCHARGE SUMMARY
--- NOTE | ~2017-01-17 | CO ---
Unit #: [id number] #: [id number] Patient: VANESSA NAVA [id number] [address] [address] [id number] I MR#: [id number] NAME: VANESSA NAVA ROOM: 305 Age: 51 Sex: F Admission Date: 01/17/2017 : 1965 Attending Physician: Marry Warren M.D. Primary Care Physician: Joe Gallego M.D. Consultation Date: 01/21/2017 CONSULTATION REPORT REASON FOR CONSULTATION Iron deficiency anemia. HISTORY Ms. Nava is a 51-year-old -[place] female with a history of stroke, CHF, diabetes, GERD, hypertension, who was recently hospitalized for CHF exacerbation. She presented with increasing shortness of breath, cough productive of sputum, and found to have significant anemia. The patient is a poor historian but denies any overt history of overt GI blood loss in the form of hematemesis, melena, hematochezia. She has never had any previous endoscopy or colonoscopies. Her admission hemoglobin is 7.7 with an MCV of 78. Her admission was precipitated by worsening CHF. PAST MEDICAL HISTORY Significant for: 1. Ischemic cardiomyopathy. 2. History of septic arthritis involving the lumbar spine with epidural abscess and MRSA. 3. History of left great toe osteomyelitis, status post amputation. 4. History of CVA. 5. Hypertension. 6. Hyperlipidemia. 7. GERD. 8. Severe protein calorie malnutrition. 9. History of mitral valve endocarditis. 10. She also has a history of diabetes. ALLERGIES She has no known drug allergies. MEDICATIONS Her home medications included: 1. Potassium. 2. Lyrica. 3. Coreg. 4. Senna. 5. Atorvastatin. 6. Oxycodone. 7. Aspirin. 8. Lisinopril. 9. Plavix. 10. Lasix. 11. Percocet. 12. Mylanta. Unit #: [id number] #: [id number] Patient: VANESSA NAVA 13. Insulin. SOCIAL HISTORY The patient lives with her . Stopped smoking last year, does not drink alcohol. FAMILY HISTORY Significant for coronary artery disease and diabetes. No family history of colon or pancreatic cancer or liver disease. REVIEW OF SYSTEMS A detailed review of organ systems is negative except for one dictated under History of Present Illness. PHYSICAL EXAMINATION GENERAL APPEARANCE: She is awake and somnolent, answers questions and then doses off to sleep. VITAL SIGNS: Vital signs are stable with a temperature of 99.7, pulse is 120/minute and regular, respiratory rate is 20, blood pressure 104/62. CARDIOVASCULAR EXAMINATION: Normal heart sounds. No murmurs except for sinus tachycardia. LUNGS: Auscultation of the lungs reveals bilateral, symmetric, diminished air entry. ABDOMEN: Soft, nontender. Liver and spleen are not palpable. Bowel sounds normal. DIAGNOSTIC STUDIES LABORATORY: Lab evaluation showed hemoglobin of 8.6 post transfusion. Before that, hemoglobin was 7.7. MCV 78.8, BUN and creatinine normal. Albumin is 1.5. CLINICAL IMPRESSION The patient most likely has iron deficiency anemia from chronic GI blood loss. A diagnostic endoscopy will be done tomorrow. In addition, we will obtain a serum iron study, B12 and folate levels with the morning labs. She also had acute respiratory failure, congestive heart failure. She also has a history of pleural effusions. She also has severe protein calorie malnutrition. MANAGEMENT PLAN Although patient should have already had panendoscopy, she is extremely frail and a poor surgical candidate. Therefore, colonoscopy at this time would be unwarranted and helpful. A diagnostic endoscopy along with the iron studies and B12 and folate levels will definitely be done tomorrow morning. Thank you for asking me to see this pleasant woman. I appreciate the consult. Dictated by... Ben Nicole/kathy TD: 02/25/2017 08:39 Unit #: [id number] #: [id number] Patient: VANESSA NAVA JOB #: [id number] CONSULTATION REPORT Page 1 of 1 X Wellington Larios MD X CONSULTATION REPORT
--- NOTE | ~2017-01-17 | CR71 ---
[facility] A Service of [facility] & [facility] RADIOLOGY TEXT RESULTS PATIENT: VANESSA NAVA LOCATION: [facility] 305- : 65 UNIT #: [id number] AGE: [address]: Marry Warren MD SEX: F ORDER DR: [id number] [facility] [address] [facility] [address] [facility] [place], [place] [address] [id number] I MR#: [id number] Acc #: [id number] NAME: VANESSA NAVA : 1965 SEX: F STUDY DATE/TIME: 01/21/2017 8:20 UNIT: A U ROOM: 305 STUDY DESCRIPTION: CR Chest Single View Attending Physician: Marry Warren M.D. Ordering Physician: Ryan Leo M.D. Primary Care Physician: Joe Gallego M.D. MEDICAL IMAGING REPORT This report is preliminary unless electronic signature is present EXAM AP chest HISTORY Post thoracentesis on the left. Evaluate for pneumothorax. TECHNIQUE Single AP view chest was obtained. FINDINGS No pneumothorax is seen on the left following thoracentesis. Aeration at the left lung base shows marked improvement. No new infiltrates are seen on the right. IMPRESSION No evidence of pneumothorax following left thoracentesis. Dictated by... Ryan Leo M.D. THIS IS AN ELECTRONICALLY VERIFIED REPORT Ryan Leo M.D. at 01/21/2017 5:02 PM LYNNE/constance TD: 01/21/2017 09:26 JOB #: [id number] MEDICAL IMAGING REPORT Page 1 of 1 COPY
--- NOTE | ~2017-01-17 | CR72 ---
[facility] A Service of [facility] & [facility] RADIOLOGY TEXT RESULTS PATIENT: VANESSA NAVA LOCATION: [address] : [birth year] UNIT #: [id number] AGE: [address]: Marry Warren MD SEX: F ORDER DR: [id number] [facility] [address] [place], [place] [address] [id number] I MR#: [id number] Acc #: [id number] NAME: VANESSA NAVA : 1965 SEX: F STUDY DATE/TIME: 01/18/2017 14:53 UNIT: [facility] ROOM: [facility] STUDY DESCRIPTION: CR Chest Single View Portable Attending Physician: Marry Warren M.D. Ordering Physician: [facility] Primary Care Physician: Joe Gallego M.D. MEDICAL IMAGING REPORT This report is preliminary unless electronic signature is present EXAM Portable chest HISTORY Central line placement today. FINDINGS Right IJ central line tip is at the junction SVC and right atrium. No pneumothorax. Stable moderate-sized left pleural effusion and left basilar consolidation or atelectasis and stable cardiac enlargement and mild vascular congestion compared to yesterday. Dictated by... Carlos Alberto M.D. THIS IS AN ELECTRONICALLY VERIFIED REPORT Carlos Alberto M.D. at 01/18/2017 11:10 PM DFL/pcl TD: 01/18/2017 18:10 JOB #: [id number] MEDICAL IMAGING REPORT Page 1 of 1 COPY
--- NOTE | ~2017-01-17 | OR ---
Unit #: [id number] #: [id number] Patient: VANESSA NAVA [id number] [facility]. [place], [place] [address] [id number] I MR#: [id number] NAME: VANESSA NAVA ROOM: 305 Date of Procedure: 01/22/2017 Admission Date: 01/17/2017 Surgeon: Wellington Larios M.D. : 1965 Attending Physician: Marry Warren M.D. Primary Care Physician: Joe Gallego M.D. OPERATIVE REPORT PREOPERATIVE DIAGNOSIS Iron deficiency anemia. PROCEDURE PERFORMED Upper gastrointestinal endoscopy. POSTOPERATIVE DIAGNOSES 1. The patient had mild prepyloric antral gastritis. 2. There was distal esophageal mucosal ring. This was felt to be nonobstructing and did not require dilation. A biopsy was obtained from the antrum for CLOtest. Rest of the examination up to third part of the duodenum was normal. RECOMMENDATIONS The patient will be given ferrous gluconate IV for the next 3 days and healthy heart diet. She is too sick at the present time to withstand colonoscopy, which should be considered as an outpatient in the future. SEDATION USED MAC. DESCRIPTION OF PROCEDURE Following detailed explanation of potential risks and complications of an upper endoscopy, namely perforation, bleeding, and complication related to sedation, the patient was brought to GI lab and laid in the left lateral decubitus position. Lubricated tip of the Olympus video upper endoscope was passed through the bite block into the proximal esophagus under direct vision. The entire esophageal mucosa was examined and appeared normal. Z-line was nicely demarcated, there being no esophagitis or hiatus hernia. The scope was then advanced into the gastric cavity and the latter was insufflated. Mucosa of the fundus, body, and antrum was examined. The patient was noted to have mild prepyloric antral erosive gastritis. Pylorus was intubated with visualization of normal duodenal bulb and second and third part of the duodenum. Upon withdrawal and retroflexion, incisura, cardia, and greater curve were examined and biopsy was obtained from the antrum for CLOtest. The scope was then withdrawn into the distal esophagus. A distal esophageal ring was noted. This was felt to be wide open, not requiring dilation. The scope was then withdrawn. The patient returned to the recovery area. She tolerated the procedure without any postprocedure complications. Unit #: [id number] #: [id number] Patient: VANESSA NAVA Dictated by.Ben Fernandes/ruddy TD: 01/24/2017 06:47 JOB #: [id number] OPERATIVE REPORT Page 1 of 1 X Wellington Larios MD PROCEDURE OPERATIVE NOTE
--- NOTE | ~2017-01-17 | CO ---
Unit #: [id number] #: [id number] Patient: VANESSA NAVA [id number] [address] [place], [place] [address] [id number] I MR#: [id number] NAME: VANESSA NAVA ROOM: 305 Age: 51 Sex: F Admission Date: 01/17/2017 : 1965 Attending Physician: Marry Warren M.D. Primary Care Physician: Joe Gallego M.D. Consultation Date: 01/19/2017 CONSULTATION REPORT CHIEF COMPLAINT Nonhealing wound, left great toe; right heel ulceration. HISTORY OF PRESENT ILLNESS Ms. Nava is a 51-year-old female, who has previously been followed by Dr. Estrada. She most recently had undergone a left partial hallux amputation on 11/06/2016. She was most recently seen in the outpatient clinic on 01/15/2017, only 2 days prior to current presentation. At that visit, she was noted to have a nonhealing left hallux wound as well as a necrotic 3 x 5 ulceration over the right calcaneus. She is awaiting approval for EpiFix amniotic graft to the calcaneus. She is to be using Medihoney to both wounds with daily dressing changes. She has now been admitted to the hospital as of 01/17/2017 for CHF exacerbation with shortness of breath. She is in the ICU on a dobutamine drip. Orthopedic consultation has been requested regarding the bilateral foot wounds. PAST MEDICAL HISTORY 1. Ischemic cardiomyopathy. 2. Coronary artery disease, status post stenting and CABG. 3. History of MSSA bacteremia. 4. Diabetes mellitus with peripheral neuropathy. 5. Hypertension. 6. Hyperlipidemia. 7. CVA with no residual symptoms. 8. GERD. 9. Protein malnutrition. 10. History of mitral valve endocarditis. PAST SURGICAL HISTORY Percutaneous coronary stenting, CABG, I and D of right septic AC joint, and partial hallux amputation of left toe, I and D of lumbar epidural abscess. MEDICATIONS Home medications include K-Dur, Lyrica, Coreg, senna, atorvastatin, oxycodone, aspirin, lisinopril, Plavix, Lasix, Percocet, Lantus. ALLERGIES No known drug allergies. SOCIAL HISTORY She lives with her . She has no current tobacco use as of last Unit #: [id number] #: [id number] Patient: VANESSA NAVA. She has no alcohol or illicit drug use. She is not working. FAMILY HISTORY Coronary artery disease and diabetes mellitus. REVIEW OF SYSTEMS Ten systems are reviewed and negative except as noted in the HPI. PHYSICAL EXAMINATION GENERAL: A 51-year-old female appearing older than stated age, examined in the ICU. PSYCHIATRIC: She is awake, alert, and oriented appropriately. She is pleasant and cooperative with exam. HEENT: Normocephalic and atraumatic cranium. Pupils are equally round and reactive to light. NECK: Supple. No JVD. No lymphadenopathy. CARDIAC: Tachycardic rate with regular rhythm. PULMONARY: No current increased workup of breathing, no audible expiratory wheezing. ABDOMEN: Soft, nontender, nondistended. NEUROLOGIC: She has absent sensation at approximately the mid tibia, if not slightly higher on bilateral lower extremities consistent with diabetic sensory neuropathy. VASCULAR: I am unable to palpate dorsalis pedis pulse on the left and a faint pulse on the right. SKIN: There is no current edema, which appears to have resolved since her admission. She has a 0.5 x 2 cm open wound on the distal extent of the left hallux at the site of her prior amputation. Now, she has a 3 x 5 cm wound over the right heel. This is necrotic decubitus ulceration. No evidence of infection or drainage currently. DIAGNOSTIC STUDIES LABORATORY RESULTS: BMP is unremarkable. Total protein 6.9. White blood cell count 11.5, which is down from 18.5, with a hemoglobin of 8.1. IMAGING STUDIES: CT of the chest from 01/18/2017 is reviewed and demonstrates bilateral pleural effusions. Ultrasound of the bilateral lower extremities from 01/06/2017 is reviewed, demonstrates no evidence of DVT from that date. IMPRESSION This is a 51-year-old female who is under Dr. Estrada and followed in the outpatient clinic with bilateral foot wounds including a nonhealing left partial hallux amputation wound as well as a right necrotic calcaneal decubitus ulceration. PLAN This is being treated with Medihoney in the outpatient setting. She is awaiting insurance approval for an EpiFix graft to the right calcaneus. While in the hospital, she can continue to receive daily dressing changes to the right heel and protect this with a [employer] heel protector boot. She is going to receive daily dressing changes to the left foot as well. She should follow up with Dr. Estrada as scheduled upon discharge. Dictated by... Basil Parish M.D. Unit #: [id number] #: [id number] Patient: VANESSA NAVA MARGI/ruddy TD: 01/20/2017 00:50 JOB #: [id number] CONSULTATION REPORT Page 1 of 1 X Basil Parish MD X CONSULTATION REPORT
--- NOTE | ~2017-01-17 | CR63 ---
[facility] A Service of [facility] & [facility] RADIOLOGY TEXT RESULTS PATIENT: VANESSA NAVA LOCATION: [facility] 305- : 65 UNIT #: [id number] AGE: [address]: Marry Warren MD SEX: F ORDER DR: [id number] [facility] [address] [facility]. [place], [place] [address] [id number] I MR#: [id number] Acc #: [id number] NAME: VANESSA NAVA : 1965 SEX: F STUDY DATE/TIME: 01/22/2017 8:02 UNIT: A U ROOM: 305 STUDY DESCRIPTION: CR Chest 2 View Attending Physician: Marry Warren M.D. Ordering Physician: Marry Warren M.D. Primary Care Physician: Joe Gallego M.D. MEDICAL IMAGING REPORT This report is preliminary unless electronic signature is present EXAM PA and lateral chest in 3 views. Date of study 01/22/2017 COMPARISON 01/21/2017. CLINICAL HISTORY Short of air for 5 days. FINDINGS Redemonstrated interstitial infiltrate, stable to perhaps slightly worsened when compared to 01/21. There is no pneumothorax or consolidation. Tiny if any pleural effusions. No pneumothorax. Dictated by... Fam Patel M.D. THIS IS AN ELECTRONICALLY VERIFIED REPORT Fam Patel M.D. at 01/23/2017 3:52 PM ADOWA/huong TD: 01/22/2017 09:55 JOB #: [id number] MEDICAL IMAGING REPORT Page 1 of 1 COPY
[~2017-01-17 19:41] MED LIST changes: +ATRAC-TAIN142 GM TOP; +COREG3.125 MG PO; +ENTRESTO 24 MG1 EACH PO; +LASIX20 MG PO; +LIPITOR PO; +OXYCODONE HCL30 MG PO; +PERCOCET10 PO; +POTASSIUM CHLO10 ME1 PO; +PRINIVIL5 MG PO; +SENEXON-S TABL1 EACH PO; +TASPRIN325 MG PO
[2017-01-17] MEDS ORDERED: OXYCODONE HCL30 MG PO (20:26)
[2017-01-17] MEDS ORDERED: ASPIRIN ENTERI325 M1 PO (20:26)
[2017-01-17] MEDS ORDERED: CLOPIDOGREL75 MG PO (20:27)
[2017-01-17] MEDS ORDERED: LASIX PO (20:27)
[2017-01-17] MEDS ORDERED: LISINOPRIL5 MG PO (20:27)
[2017-01-17] MEDS ORDERED: K-DUR10 MEQ PO (20:28)
[2017-01-17] MEDS ORDERED: COREG3.125 MG PO (20:29)
[2017-01-17] MEDS ORDERED: LYRICA200 MG PO (20:29)
[2017-01-17] MEDS ORDERED: ATORVASTATIN CA80 MG PO (20:30)
[2017-01-17] MEDS ORDERED: SENEXON-S TABL1 EACH PO (20:30)
[2017-01-17] MEDS ORDERED: LANTUS100 U/ML SUBQ ×2 (20:31→21:06)
[2017-01-17] MEDS ORDERED: PERCOCET10 PO (20:31)
[2017-01-17 20:38] LABS: BASOPHIL# 0.1 X10e3 (0-0.3); BASOPHIL% 0.6 % (0-2.5); DIFF IND YES; EOSINOPHIL# 0.1 X10e3 (0-0.7); EOSINOPHIL% 0.3 % (0.0-7.0); HEMATOCRIT 31.6 % (35.0-45.0); HEMOGLOBIN 9.6 gm/dL (12.0-16.0); LYMPHOCYTE# 2.3 X10e3 (1.0-3.5); LYMPHOCYTE% 12.4 % (17.0-45.0); MEAN CELL VOLUME 78.7 FL (83-96); MEAN CORPUSCULAR HEMOGLOBIN 23.9 PG (28-34); MEAN CORPUSCULAR HGB CONC 30.4 g/dL (30-36); MEAN PLATELET VOLUME 7.9 FL (6.5-11.5); MONOCYTE# 0.9 X10e3 (0-1.0); MONOCYTE% 4.8 % (3.0-12.0); NEUTROPHIL# 15.2 X10e3 (1.5-7.1); NEUTROPHIL% 81.9 % (40-75); PLATELET COUNT 467 X10e3 (140-420); RED BLOOD COUNT 4.01 X10e (3.90-5.30); RED CELL DISTRIBUTION WIDTH 17.1 % (11.0-15.5); WHITE BLOOD COUNT 18.5 X10e3 (4.0-10.5)
[2017-01-17 20:51] LABS: INR 1.1
[2017-01-17 20:54] LABS: PLATELET ESTIMATE INCREASED (NORMAL)
[2017-01-17 20:55] LABS: HYPOCHROMIA MOD
[2017-01-17 21:00] LABS: BUN/CREATININE RATIO 12.5; CALCIUM SERUM 8.3 mg/dL (8.4-10.2); CREATININE SERUM 0.8 mg/dL (0.6-1.4); POTASSIUM 3.2 mmol/L (3.5-5.1)
[2017-01-17 21:36] LABS: POC - CKMB 3.6 ng/mL (0.0-7.9); POC - TROPONIN <0.05 ng/mL (<=0.05)
[2017-01-17 22:29] LABS: POC - TROPONIN <0.05 ng/mL (<=0.05)
[2017-01-18 05:23] LABS: BASOPHIL# 0.1 X10e3 (0-0.3); BASOPHIL% 0.8 % (0-2.5); EOSINOPHIL% 0.1 % (0.0-7.0); HEMATOCRIT 30.3 % (35.0-45.0); HEMOGLOBIN 9.2 gm/dL (12.0-16.0); LYMPHOCYTE# 2.2 X10e3 (1.0-3.5); LYMPHOCYTE% 19.2 % (17.0-45.0); MEAN CELL VOLUME 78.5 FL (83-96); MEAN CORPUSCULAR HEMOGLOBIN 23.8 PG (28-34); MEAN CORPUSCULAR HGB CONC 30.3 g/dL (30-36); MEAN PLATELET VOLUME 8.4 FL (6.5-11.5); MONOCYTE% 8.3 % (3.0-12.0); NEUTROPHIL# 8.3 X10e3 (1.5-7.1); NEUTROPHIL% 71.6 % (40-75); PLATELET COUNT 359 X10e3 (140-420); RED BLOOD COUNT 3.86 X10e (3.90-5.30); RED CELL DISTRIBUTION WIDTH 17.3 % (11.0-15.5); WHITE BLOOD COUNT 11.7 X10e3 (4.0-10.5)
[2017-01-18 05:24] LABS: DIFF IND NO
[2017-01-18 05:57] LABS: BUN/CREATININE RATIO 14.28; CALCIUM SERUM 8.1 mg/dL (8.4-10.2); CREATININE SERUM 0.7 mg/dL (0.6-1.4); GLOM FILT RATE Estimated 116.3 mL/min (>60); MAGNESIUM 1.6 mg/dL (1.6-3.0); POTASSIUM 3.7 mmol/L (3.5-5.1)
[2017-01-18 14:17] LABS: URINE APPEARANCE CLEAR; URINE BILIRUBIN NEG (NEG); URINE BLOOD 1+ (NEG); URINE COLOR YELLOW; URINE GLUCOSE NEG (NEG); URINE KETONE NEG (NEG); URINE LEUKOCYTE ESTERASE TRACE (NEG); URINE NITRATE NEG (NEG); URINE PH 6.5 (5-8); URINE PROTEIN 2+ (NEG); URINE SPECIFIC GRAVITY 1.008 (1.003-1.035); URINE UROBILINOGEN 0.2 MG/DL (NEG)
[2017-01-18 14:21] LABS: URINE BACTERIA AUWI NEG (NEGATIVE); URINE SQUAMOUS EPITHELIAL CELL NONE SEEN /[HPF]
[2017-01-18 14:33] LABS: CULTURE INDICATED? NO
[2017-01-19 04:24] LABS: ARTERIAL BLD GAS O2 SATURATION 96.8 % (90.0-100.0); ARTERIAL BLOOD GAS HCO3 31.2 mmol/L; ARTERIAL BLOOD GAS MET HB 0.8 %sat (0.0-2.0); ARTERIAL BLOOD GAS pH 7.355 (7.350-7.450)
[2017-01-19 04:29] LABS: ARTERIAL BLOOD GAS ALLEN TEST NORMAL; ARTERIAL BLOOD GAS ART SITE RIGHT RADIAL; ARTERIAL BLOOD GAS DELIVERY NASAL CANNULA; ARTERIAL BLOOD GAS PCO2 55.9 mmHg (35.0-45.0); ARTERIAL DRAW? YES
[2017-01-19 06:05] LABS: BASOPHIL# 0.1 X10e3 (0-0.3); BASOPHIL% 0.5 % (0-2.5); EOSINOPHIL# 0.1 X10e3 (0-0.7); EOSINOPHIL% 0.9 % (0.0-7.0); HEMATOCRIT 26.7 % (35.0-45.0); HEMOGLOBIN 8.1 gm/dL (12.0-16.0); LYMPHOCYTE# 1.9 X10e3 (1.0-3.5); LYMPHOCYTE% 16.8 % (17.0-45.0); MEAN CELL VOLUME 78.5 FL (83-96); MEAN CORPUSCULAR HEMOGLOBIN 23.7 PG (28-34); MEAN CORPUSCULAR HGB CONC 30.2 g/dL (30-36); MEAN PLATELET VOLUME 8.1 FL (6.5-11.5); MONOCYTE# 0.9 X10e3 (0-1.0); MONOCYTE% 7.9 % (3.0-12.0); NEUTROPHIL# 8.5 X10e3 (1.5-7.1); NEUTROPHIL% 73.9 % (40-75); PLATELET COUNT 333 X10e3 (140-420); RED CELL DISTRIBUTION WIDTH 16.8 % (11.0-15.5); WHITE BLOOD COUNT 11.5 X10e3 (4.0-10.5)
[2017-01-19 06:08] LABS: DIFF IND NO
[2017-01-19 07:05] LABS: ALBUMIN SERUM 1.6 g/dL (3.5-5.0); BILIRUBIN,TOTAL 0.5 mg/dL (0.2-2.0); CALCIUM SERUM 8.1 mg/dL (8.4-10.2); GLOM FILT RATE Estimated 75.6 mL/min (>60); MAGNESIUM 1.9 mg/dL (1.6-3.0); PHOSPHOROUS 4.4 mg/dL (2.5-4.6); POTASSIUM 3.7 mmol/L (3.5-5.1); PROTEIN TOTAL SERUM 6.9 g/dL (6.0-8.3)
[2017-01-20 06:32] LABS: HEMATOCRIT 24.9 % (35.0-45.0); HEMOGLOBIN 7.7 gm/dL (12.0-16.0); MEAN CELL VOLUME 77.2 FL (83-96); MEAN CORPUSCULAR HEMOGLOBIN 23.8 PG (28-34); MEAN CORPUSCULAR HGB CONC 30.9 g/dL (30-36); MEAN PLATELET VOLUME 8.2 FL (6.5-11.5); RED BLOOD COUNT 3.22 X10e (3.90-5.30); RED CELL DISTRIBUTION WIDTH 16.8 % (11.0-15.5); WHITE BLOOD COUNT 11.1 X10e3 (4.0-10.5)
[2017-01-20 07:02] LABS: ALBUMIN SERUM 1.4 g/dL (3.5-5.0); BILIRUBIN,TOTAL 0.7 mg/dL (0.2-2.0); BUN/CREATININE RATIO 11.81; CREATININE SERUM 1.1 mg/dL (0.6-1.4); GLOM FILT RATE Estimated 67.3 mL/min (>60); MAGNESIUM 1.8 mg/dL (1.6-3.0); PHOSPHOROUS 4.1 mg/dL (2.5-4.6); POTASSIUM 3.7 mmol/L (3.5-5.1); PROTEIN TOTAL SERUM 5.9 g/dL (6.0-8.3)
[2017-01-21 04:45] LABS: ALBUMIN SERUM 1.5 g/dL (3.5-5.0); BILIRUBIN,TOTAL 0.7 mg/dL (0.2-2.0); CALCIUM SERUM 8.1 mg/dL (8.4-10.2); GLOM FILT RATE Estimated 75.6 mL/min (>60); HEMATOCRIT 27.9 % (35.0-45.0); HEMOGLOBIN 8.6 gm/dL (12.0-16.0); MAGNESIUM 1.9 mg/dL (1.6-3.0); MEAN CELL VOLUME 78.8 FL (83-96); MEAN CORPUSCULAR HEMOGLOBIN 24.4 PG (28-34); MEAN PLATELET VOLUME 8.8 FL (6.5-11.5); PHOSPHOROUS 4.3 mg/dL (2.5-4.6); POTASSIUM 4.1 mmol/L (3.5-5.1); PROTEIN TOTAL SERUM 6.4 g/dL (6.0-8.3); RED BLOOD COUNT 3.54 X10e (3.90-5.30)
[2017-01-21 10:18] LABS: PROTEIN, BODY FLUID 1.5 gm/dL
[2017-01-21 11:17] LABS: BF TOTAL NUCLEATED CELL COUNT 515 CMM (0-100); BODY FLUID APPEARANCE CLEAR; BODY FLUID SOURCE PLEURAL
[2017-01-21 11:19] LABS: BODY FLUID RBC <10000 CMM
[2017-01-22 04:37] LABS: HEMATOCRIT 25.6 % (35.0-45.0); HEMOGLOBIN 7.8 gm/dL (12.0-16.0); MEAN CELL VOLUME 77.8 FL (83-96); MEAN CORPUSCULAR HEMOGLOBIN 23.8 PG (28-34); MEAN CORPUSCULAR HGB CONC 30.6 g/dL (30-36); MEAN PLATELET VOLUME 8.2 FL (6.5-11.5); RED BLOOD COUNT 3.29 X10e (3.90-5.30); RED CELL DISTRIBUTION WIDTH 16.7 % (11.0-15.5); WHITE BLOOD COUNT 11.9 X10e3 (4.0-10.5)
[2017-01-22 05:05] LABS: ALBUMIN SERUM 1.3 g/dL (3.5-5.0); CALCIUM SERUM 8.1 mg/dL (8.4-10.2); GLOM FILT RATE Estimated 75.6 mL/min (>60); POTASSIUM 3.6 mmol/L (3.5-5.1); PROTEIN TOTAL SERUM 5.9 g/dL (6.0-8.3)
[2017-01-22 05:21] LABS: FOLATE (FOLIC ACID) 14.6 ng/mL (>5.8)
[2017-01-23 06:26] LABS: HEMATOCRIT 24.8 % (35.0-45.0); HEMOGLOBIN 7.8 gm/dL (12.0-16.0); MEAN CORPUSCULAR HEMOGLOBIN 23.8 PG (28-34); MEAN CORPUSCULAR HGB CONC 31.3 g/dL (30-36); MEAN PLATELET VOLUME 8.4 FL (6.5-11.5); RED BLOOD COUNT 3.26 X10e (3.90-5.30); RED CELL DISTRIBUTION WIDTH 16.9 % (11.0-15.5); WHITE BLOOD COUNT 8.7 X10e3 (4.0-10.5)
[2017-01-23 07:30] LABS: ALBUMIN SERUM 1.5 g/dL (3.5-5.0); BILIRUBIN,TOTAL 0.7 mg/dL (0.2-2.0); GLOM FILT RATE Estimated 75.6 mL/min (>60); MAGNESIUM 1.8 mg/dL (1.6-3.0); POTASSIUM 3.1 mmol/L (3.5-5.1); PROTEIN TOTAL SERUM 6.4 g/dL (6.0-8.3)
[2017-01-24 05:31] LABS: HEMATOCRIT 22.7 % (35.0-45.0); HEMOGLOBIN 7.2 gm/dL (12.0-16.0); MEAN CELL VOLUME 75.7 FL (83-96); MEAN CORPUSCULAR HEMOGLOBIN 23.9 PG (28-34); MEAN CORPUSCULAR HGB CONC 31.6 g/dL (30-36); MEAN PLATELET VOLUME 8.7 FL (6.5-11.5); RED CELL DISTRIBUTION WIDTH 16.7 % (11.0-15.5); WHITE BLOOD COUNT 7.2 X10e3 (4.0-10.5)
[2017-01-24 06:35] LABS: CALCIUM SERUM 7.8 mg/dL (8.4-10.2); GLOM FILT RATE Estimated 75.6 mL/min (>60); POTASSIUM 3.4 mmol/L (3.5-5.1)
== END 2017-01-24 15:54 | DRG 291 ==
LOC: CED 19:41 → CEDOF 22:30 → CICCU3 01-18 02:45 → C3A PCU 01-19 14:45
PROVIDERS: Emergency Medicine; Internal Medicine
PROC: 02HV33Z Insertion of Infusion Device into Superior Vena Cava, Percutaneous Approach (ICD-10-PCS; 2017-01-18)
PROC: B548ZZA Ultrasonography of Superior Vena Cava, Guidance (ICD-10-PCS; 2017-01-18)
PROC: 0W9B3ZZ Drainage of Left Pleural Cavity, Percutaneous Approach (ICD-10-PCS; principal; 2017-01-21)
PROC: 0DB68ZX Excision of Stomach, Via Natural or Artificial Opening Endoscopic, Diagnostic (ICD-10-PCS; 2017-01-22)
DX: I11.0 Hypertensive heart disease with heart failure (principal); A41.9 Sepsis, unspecified organism; J69.0 Pneumonitis due to inhalation of food and vomit; L89.614 Pressure ulcer of right heel, stage 4; J96.02 Acute respiratory failure with hypercapnia; J96.01 Acute respiratory failure with hypoxia; E46 Unspecified protein-calorie malnutrition; I96 Gangrene, not elsewhere classified; J90 Pleural effusion, not elsewhere classified; M86.9 Osteomyelitis, unspecified; I50.23 Acute on chronic systolic (congestive) heart failure; D50.9 Iron deficiency anemia, unspecified; E66.9 Obesity, unspecified; Z68.32 Body mass index [BMI] 32.0-32.9, adult; E11.65 Type 2 diabetes mellitus with hyperglycemia; E11.42 Type 2 diabetes mellitus with diabetic polyneuropathy; I25.10 Atherosclerotic heart disease of native coronary artery without angina pectoris; E78.5 Hyperlipidemia, unspecified; K21.9 Gastro-esophageal reflux disease without esophagitis; K22.2 Esophageal obstruction; T81.89XA Other complications of procedures, not elsewhere classified, initial encounter; K29.60 Other gastritis without bleeding; Z87.891 Personal history of nicotine dependence; Z86.73 Personal history of transient ischemic attack (TIA), and cerebral infarction without residual deficits; Z86.19 Personal history of other infectious and parasitic diseases; Z95.5 Presence of coronary angioplasty implant and graft; Z89.412 Acquired absence of left great toe; Z95.1 Presence of aortocoronary bypass graft; Z79.4 Long term (current) use of insulin; Z79.82 Long term (current) use of aspirin; Z79.02 Long term (current) use of antithrombotics/antiplatelets; Z79.899 Other long term (current) drug therapy
CPT/HCPCS: 36415; 36600; 71010; 71020; 71250; 80048; 80053; 81003; 82308; 82553; 82607; 82728; 82746; 82803; 82947; 83540; 83550; 83615; 83735; 83880; 83986; 84100; 84132; 84157; 84484; 85025; 85027; 85610; 85730; 87040; 87070; 87077; 87205; 88108; 88305; 89051; 93005; 93922; 94640; 94660; 94760; 96374; 97110; 97116; 97162; 97167; 97530; 97535; 99285; G8978-GP; G8979-GP; G8980-GP; G8987-GO; G8988-GO; G8989-GO; J1250; J1650; J1815; J1940; J2405; J2543; J2916; J3475